=== PATIENT | female | born 1995 | race Caucasian/White ===

== ENCOUNTER 2017-10-13 13:07 | Emergency (ER) | payer BC, MEDICAID ==
[~2017-10-13] VITALS: Ht 172.7 cm; Wt 70.8 kg
[2017-10-13 13:11] VITALS: BP 119/87
[2017-10-13] MEDS ORDERED: ENOXAPARIN 100 MG/ML SYR SC SCH (13:40)
--- NOTE | 2017-10-13 14:03 | ER Report ---
History and Physical Time Seen By MD: 13:05 Hx. of Stated Complaint: PT HERE FOR BLOOD CLOT IN LEFT ARM. HPI/ROS CHIEF COMPLAINT: 22-year-old female comes emergency Department sent here by [facility] to get an outpatient ultrasound which confirmed a DVT in the left upper extremity through the brachiocephalic vein this was confirmed on imaging patient sent here for evaluation. 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 Patient is describing of the other than some dull numbness no sharp stabbing axillary pain good range of motion and no signs of nerve entrapment and full range of motion without worsening his symptoms. HISTORY OF PRESENT ILLNESS: must have 4 elements REVIEW OF SYSTEMS: Respiratory: No cough, no dyspnea. Cardiovascular: No chest pain, no palpitations. Gastrointestinal: No vomiting, no abdominal pain. Musculoskeletal: No back pain. Remainder of the 14 system rev: Yes Reviewed Nurses Notes: Yes Old Medical Records Reviewed: Yes Hx Substance Use Disorder: No Hx Alcohol Use: No Constitutional Vital Sign - Last 24 Hours 10/13/17 13:11 Temp 98.1 Pulse 53 Resp 18 B/P (MAP) 119/87 Pulse Ox 98 Physical Exam General Appearance: The patient is alert, has no immediate need for airway protection and no current signs of toxicity. [ ] Eyes: Pupils equal and round no injection. Respiratory: Chest is non tender, lungs are clear to auscultation. Cardiac: regular rate and rhythm [ ] Gastrointestinal: Abdomen is soft and non tender, no masses, bowel sounds normal. Musculoskeletal: Neck: Neck is supple and non tender. Extremities have full range of motion and are non tender. Skin: No rashes or lesions. [ ] DIFFERENTIAL DIAGNOSIS: After history and physical exam differential diagnosis was considered for DVT Medical Decision Making ED Course/Re-evaluation ED Course ED clinical course 22-year-old female who presents emergency department today with a confirmed diagnosis on imaging of a DVT in the left upper extremity in the brachiocephalic spoke to an interventional radiology as well as vascular surgery patient be started on anticoagulation which is reasonable to do for her age and comorbidities concern for her breast-feeding status confirmed with our [employer] PROGRAM MANAGER consult of this is safe for breast-feeding and for and patient was given a dose here started on Lovenox for home use advised to follow-up with [place] surgeon in the next 24-48 hours return if symptoms worsen Decision to Disposition Date: Oct 13, 2017 Decision to Disposition Time: 14:00 Depart Departure Latest Vital Signs Vital Signs Date Time Temp Pulse Resp B/P (MAP) Pulse Ox O2 Delivery O2 Flow Rate FiO2 10/13/17 13:11 98.1 53 18 119/87 98 Impression: Primary Impression: DVT (deep venous thrombosis) Condition: Improved Disposition: HOME OR SELF-CARE Departure Forms: Medications Reconciliation, Patient Portal Information, ER Transition Record Additional Instructions: Patient to follow up with vascular surgery information given ANU MISTRY MD Oct 13, 2017 14:03
== END 2017-10-13 14:16 | disposition home or self-care (01) ==
LOC: ER 13:17
DX: I82.622 Acute embolism and thrombosis of deep veins of left upper extremity (principal)
CPT/HCPCS: 96372; 99282; J1650

== ENCOUNTER → 2017-10-13 | Outpatient (CLI) | payer BC, MEDICAID ==
--- NOTE | 2017-10-13 13:15 | RADIOLOGY IMAGING REPORT ---
[place] [facility] [place] NAME: Selin Martino : 1995 MR: [id number] V: [id number] EXAM DATE: ORDERING PHYSICIAN: BALAJI LUIS TECHNOLOGIST: Location: [facility] Patient: Selin Martino : 1995 Visit/Account:[id number] Date of Sevice: 10/13/2017 INDICATION: . Left arm pain DATE: 10/13/2017 12:50 PM. TECHNIQUE: VENOUS DOPP UPPER LEFT EXTREMI COMPARISON: None FINDINGS: Left internal jugular vein, subclavian vein, axillary vein, and cephalic vein are patent. T here is thrombus within a left brachial vein which appears occlusive. The vessel is noncompressible. There is also superficial thrombus within the distal aspect of the left basilic vein. IMPRESSION: Positive for left upper extremity DVT involving a brachial vein. This appears occlusive within the pr oximal to mid aspect of the vein. There is no extension into the subclavian vein. There is also superficial thrombus within the left basilic vein. Results were called to Dr. BALAJI LUIS at 10/13/2017 12:55 PM. Report Dictated By: Bryon Garnica MD at 10/13/2017 12:50 PM Report E-Signed By: Bryon Garnica MD at 10/13/2017 1:10 PM WSN:[id number]
== END ==
LOC: US 11:18
PROVIDERS: ATTEND Family Medicine
DX: I82.622 Acute embolism and thrombosis of deep veins of left upper extremity (principal)